=== PATIENT | female | born 1990 | race Caucasian/White ===

== ENCOUNTER 2024-09-30 06:07 | Outpatient (CLI) | payer BC | END 2024-09-30 23:59 | disposition home or self-care (01) | LOC: MRI02 06:07 | PROVIDERS: ATTEND Pediatrics Sports Medicine | DX: M17.11 Unilateral primary osteoarthritis, right knee (principal); M25.461 Effusion, right knee; M22.41 Chondromalacia patellae, right knee; M65.88 Other synovitis and tenosynovitis, other site; M25.561 Pain in right knee | CPT/HCPCS: 73721 ==